=== PATIENT | male | born 1985 | race Caucasian/White ===

== ENCOUNTER 2021-11-02 06:04 | Emergency (ER) | payer SELFPAY ==
--- NOTE | 2021-11-02 06:11 | EDM.PDOC ---
ED HPI GENERAL MEDICAL PROBLEM - General Chief Complaint: General Stated Complaint: TANIYA AMB Time Seen by Provider: 11/02/21 06:11 - History of Present Illness INITIAL COMMENTS - FREE TEXT/NARRATIVE: 36-year-old male brought in by EMS generally not feeling well. He has a cough and he has been sweaty. This has been going on for over 3 days now. He coughs and gets chest discomfort associated with a cough. Then he has generalized aches. No nausea or vomiting but his appetite is diminished. He has not received the Covid or influenza vaccines. He denies any significant past medical history other than his blood pressure is always elevated. He does not have a regular physician and he has not had regular follow-up for this. - Related Data Allergies Allergy/AdvReac Type Severity Reaction Status Date / Time Penicillins Allergy Severe Anaphylactic Verified 11/02/21 06:39 Shock ED ROS GENERAL - Review of Systems Review Of Systems: See Below Constitutional: Reports: Chills, Night Sweats HEENT: Reports: No Symptoms Respiratory: Reports: Pleuritic Chest Pain (He has some discomfort from this recurrent cough), Cough, Other (Discomfort with coughing). Denies: Hemoptysis Cardiovascular: Reports: No Symptoms GI/Abdominal: Reports: Decreased Appetite. Denies: Abdominal Pain, Nausea, Vomiting : Reports: No Symptoms Musculoskeletal: Reports: Other (Generalized achiness) Skin: Reports: No Symptoms Neurological: Reports: No Symptoms ED EXAM, GENERAL - Physical Exam Exam: See Below Exam Limited By: No Limitations General Appearance: Alert, No Apparent Distress Eye Exam: Bilateral Eye: Normal Inspection Ears: Normal External Exam, Normal Canal, Hearing Grossly Normal, Normal TMs Nose: Normal Inspection, Normal Mucosa, No Blood Throat/Mouth: Normal Inspection, Normal Lips, Normal Teeth, Normal Gums, Normal Oropharynx, Normal Voice, No Airway Compromise Head: Atraumatic, Normocephalic Neck: Normal Inspection, Supple, Non-Tender, Full Range of Motion. No: Lymphadenopathy (L), Lymphadenopathy (R) Respiratory/Chest: No Respiratory Distress, Lungs Clear, Normal Breath Sounds Cardiovascular: Regular Rate, Rhythm, No Edema, No Murmur GI/Abdominal: Normal Bowel Sounds, Soft, Non-Tender Back Exam: Normal Inspection. No: CVA Tenderness (L), CVA Tenderness (R) #1 Interpretation EKG Date: 11/02/21 Rhythm: NSR Rate (Beats/Min): 92 [place]: LAD-Left [place] Deviation P-Wave: Present QRS: Normal ST-T: Normal QT: Normal Comparison: NA - No Prior EKG EKG Interpretation Comments: Abnormal Course - Vital Signs Last Recorded V/S: Last Vital Signs Temp 36.8 C 11/02/21 07:09 Pulse 86 11/02/21 07:35 Resp 18 11/02/21 07:35 BP 167/118 H 11/02/21 07:35 Pulse Ox 95 11/02/21 07:35 - Orders/Labs/Meds Orders: Active Orders 24 hr Category Date Time Status Chest 1V Frontal [CR] Stat Exams 11/02/21 06:19 Taken Labs: Laboratory Tests 11/02/21 11/02/21 11/02/21 Range/Units 06:00 06:25 06:25 WBC 12.30 H (4.23-9.07) K/mm3 RBC 5.59 (4.63-6.08) M/mm3 Hgb 16.2 (13.7-17.5) gm/dl Hct 48.7 (40.1-51.0) % MCV 87.1 (79.0-92.2) fl MCH 29.0 (25.7-32.2) pg MCHC 33.3 (32.2-35.5) g/dl RDW Std Deviation 45.3 H (35.1-43.9) fL Plt Count 320 (163-337) K/mm3 MPV 9.2 L (9.4-12.3) fl Neut % (Auto) 77.4 H (34.0-67.9) % Lymph % (Auto) 7.1 L (21.8-53.1) % [place] % (Auto) 13.3 H (5.3-12.2) % Eos % (Auto) 1.7 (0.8-7.0) Baso % (Auto) 0.2 (0.1-1.2) % Neut # (Auto) 9.51 H (1.78-5.38) K/mm3 Lymph # (Auto) 0.87 L (1.32-3.57) K/mm3 [place] # (Auto) 1.64 H (0.30-0.82) K/mm3 Eos # (Auto) 0.21 (0.04-0.54) K/mm3 Baso # (Auto) 0.03 (0.01-0.08) K/mm3 Manual Slide Review Normal smear Sodium 142 (136-145) mEq/L Potassium 4.0 (3.5-5.1) mEq/L Chloride 105 (98-107) mEq/L Carbon Dioxide 27 (21-32) mEq/L Anion Gap 14.0 (5-15) BUN 16 (7-18) mg/dL Creatinine 1.0 (0.7-1.3) mg/dL Est Cr Clr Drug Dosing 123.23 mL/min Estimated GFR (MDRD) > 60 (>60) mL/min BUN/Creatinine Ratio 16.0 (14-18) Glucose 111 H (70-99) mg/dL Calcium 8.7 (8.5-10.1) mg/dL Total Bilirubin 0.3 (0.2-1.0) mg/dL AST 46 H (15-37) U/L ALT 79 H (16-63) U/L Alkaline Phosphatase 96 (46-116) U/L Total Protein 7.1 (6.4-8.2) g/dl Albumin 3.7 (3.4-5.0) g/dl Globulin 3.4 gm/dL Albumin/Globulin Ratio 1.1 (1-2) Influenza Type A RNA Negative (NEGATIVE) Influenza Type B RNA Negative (NEGATIVE) SARS-CoV-2 RNA ([facility]) Positive H (NEGATIVE) Meds: Medications Discontinued Medications Generic Name Dose Route Start Last Admin Trade Name Freq PRN Reason Stop Dose Admin Acetaminophen 975 mg 11/02/21 07:08 11/02/21 07:19 Acetaminophen 325 Mg Tab PO 11/02/21 07:09 975 mg NOW ONE Administration - Re-Assessments/Exams Free Text/Narrative Re-Assessment/Exam: 11/02/21 07:39 CBC shows a mild white cell elevation chemistries remarkable for only mild transaminase elevation Covid and influenza screen pending. 11/02/21 07:50 Influenza screening is negative his Covid is positive. Offered monoclonal antibody. The one we have is not effective with The omnicron variant. He is thinking about his options at this point. 11/02/21 08:07 Patient has decided against monoclonal antibody therapy. Patient can use Tylenol for discomfort I advised him to get a pulse oximeter. With his poorly controlled hypertension he needs to avoid Motrin and other nonsteroidal anti-inflammatory medications and stick with Tylenol no more than 1000 mg 4 times a day. Departure - Departure Time of Disposition: 08:08 Disposition: Home, Self-Care 01 Clinical Impression: COVID-19 - Discharge Information Referrals: PCP,None [Primary Care Provider] - Forms: ED Department Discharge Additional Instructions: Return to the emergency room with any questions problems or worsening symptoms. 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 If it is continually below 88% return to the emergency room. Tylenol only as needed for fever aches and pains and discomfort. No more than 1000 mg 4 times daily. Strict isolation until you are absolutely symptom-free and then 5 days beyond this before stopping isolation. You must follow-up in the clinic of your choice for follow-up on your blood pressure. If you do not have a regular healthcare provider you can follow-up at the hospital clinic their phone number is [phone] follow-up after you get over Covid. Sepsis Event Note (ED) - Focused Exam Vital Signs: Vital Signs Temp Pulse Resp BP Pulse Ox 11/02/21 07:35 86 18 167/118 H 95 11/02/21 07:09 36.8 C 92 18 173/111 H 95 11/02/21 06:10 36.4 C 90 20 185/135 H 94 L - My Orders Last 24 Hours: My Active Orders 11/02/21 06:19 Chest 1V Frontal [CR] Stat - Assessment/Plan Last 24 Hours: My Active Orders 11/02/21 06:19 Chest 1V Frontal [CR] Stat
[2021-11-02] MEDS ORDERED: Acetaminophen 325 MG Tab PO ONE (07:08)
[2021-11-02 07:49] LABS: CORONAVIRUS COVID-19 NAA POSITIVE (NEGATIVE)
--- NOTE | 2021-11-02 09:46 | CR ---
EXAM: XR CHEST 1 VIEW LOCATION: [facility] [employer] [place] DATE/TIME: 11/02/2021 6:56 AM INDICATION: Chest pressure COMPARISON: None. IMPRESSION: Negative chest. SIGNED BY: Avery Shrestha MD 11/02/2021 8:15 AM PEDRITO
== END 2021-11-02 08:49 | disposition home or self-care (01) ==
LOC: JD.ED 06:04
DX: U07.1 COVID-19 (principal); Z88.0 Allergy status to penicillin
CPT/HCPCS: 0240U; 36415; 71045; 71045-26; 80053; 85025; 93005; 99284-25; A9270-GY